=== PATIENT | female | born 1995 | race Caucasian/White ===

== ENCOUNTER 2024-02-01 21:00 | Emergency (ER) | payer OTHER ==
[~2024-02-01] VITALS: Ht 154.9 cm; Wt 97.5 kg
[~2024-02-01 21:00] MED LIST: AMOCLA500 PO; FLUO10; Flonase 0.05% N16 GM; IBUP400 PO; LEVOFLOXACIN250 M1 PO; Norco 10-325 T1 EACH PO; PSEU120ER PO; Pyridium100 MG PO; RXHYDACE PO; Zithromax250 MG PO; Zofran8 MG PO
[2024-02-01 21:06] VITALS: BP 145/81
[2024-02-01] MEDS ORDERED: Ketorolac Tromethamine 10 MG Tab PO ONE (22:05)
== END 2024-02-01 22:32 | disposition home or self-care (01) ==
LOC: ER 21:00
DX: S62.367A Nondisplaced fracture of neck of fifth metacarpal bone, left hand, initial encounter for closed fracture (principal); W01.198A Fall on same level from slipping, tripping and stumbling with subsequent striking against other object, initial encounter; Z88.0 Allergy status to penicillin; Z88.8 Allergy status to other drugs, medicaments and biological substances
CPT/HCPCS: 73110; 73130; A9270

== ENCOUNTER 2024-03-19 13:42 | Emergency (ER) | payer OTHER ==
[~2024-03-19] VITALS: Ht 154.9 cm; Wt 98.9 kg
[2024-03-19 14:59] VITALS: BP 131/94
[2024-03-19] MEDS ORDERED: Ibuprofen 600 MG Tab PO ONE (17:20)
[2024-03-19] MEDS ORDERED: ACET500 PO (18:37)
[2024-03-19] MEDS ORDERED: IBUP200 PO (18:37)
== END 2024-03-19 18:54 | disposition home or self-care (01) ==
LOC: ER 13:42
DX: S90.31XA Contusion of right foot, initial encounter (principal); Z88.0 Allergy status to penicillin; Z88.8 Allergy status to other drugs, medicaments and biological substances; Z79.899 Other long term (current) drug therapy; Z59.89 Other problems related to housing and economic circumstances; X58.XXXA Exposure to other specified factors, initial encounter; Y93.02 Activity, running
CPT/HCPCS: 76882; 99283-25; A9270

== ENCOUNTER → 2024-05-04 | Outpatient (CLI) | payer OTHER ==
[~2024-05-04] MED LIST changes: +ACET500 PO; +IBUP200 PO
== END ==
LOC: LAB SHORT 12:46 → LAB 12:46
DX: N39.0 Urinary tract infection, site not specified (principal)
CPT/HCPCS: 87077; 87086; 87186

== ENCOUNTER 2024-07-13 18:49 | Emergency (ER) | payer OTHER ==
[~2024-07-13] VITALS: Ht 152.4 cm; Wt 97.1 kg
[2024-07-13 19:13] VITALS: BP 132/83
[2024-07-13] MEDS ORDERED: DiphenhydrAMINE HCl 50 MG/ML 1ML Vial IV ONE (19:20)
[2024-07-13] MEDS ORDERED: Ketorolac Tromethamine 15mg Vial IV ONE (19:20)
[2024-07-13] MEDS ORDERED: Ondansetron HCl 2 MG / ML 2ML Vial IV ONE (19:20)
[2024-07-13] MEDS ORDERED: Dexamethasone Sod Phos 10 MG/ML 1ML VIAL IV ONE (19:20)
[2024-07-13 19:43] LABS: BASOPHILS ABSOLUTE AUTO 0.04 K/mm3 (0.00-0.23); BASOPHILS PERCENT AUTO 0 % (0-2); EOSINOPHILS ABSOLUTE AUTO 0.06 K/mm3 (0.00-0.68); EOSINOPHILS PERCENT AUTO 1 % (0-6); IMMATURE GRAN ABSOLUTE AUTO 0.04 K/mm3 (0.00-0.10); IMMATURE GRAN PERCENT AUTO 0 % (0-1); LYMPHOCYTES ABSOLUTE AUTO 2.04 K/mm3 (0.84-5.20); LYMPHOCYTES PERCENT AUTO 16 % (21-46); MONOCYTES PERCENT AUTO 4 % (4-13); Mean Corpuscular HGB 29.2 pg (26.0-34.0); Mean Corpuscular Volume 84 fL (80-100); Mean Platelet Volume 10.8 fL (9.1-12.4); NEUTROPHILS ABSOLUTE AUTO 9.74 K/mm3 (1.96-9.15); NEUTROPHILS PERCENT AUTO 79 % (41-73); Platelet Count 304 K/mm3 (150-400); RDW Standard Deviation 39.4 fL (35.1-46.3); Red Blood Cell Count 4.79 M/mm3 (3.80-5.20); White Blood Cell Count 12.42 K/mm3 (4.00-11.30)
[2024-07-13 20:01] LABS: Albumin/Globulin Ratio 1.1 (0.8-1.8); Bilirubin, Total 0.7 mg/dL (0.1-1.0); Bun/Creatinine Ratio 8.7 (12.0-20.0); Calcium, Blood 9.2 mg/dL (8.5-10.1); Creatinine, Blood 0.92 mg/dL (0.40-1.00); Globulin, Blood 3.8 g/dL (2.2-4.0); Potassium, Blood 3.8 mmol/L (3.5-5.5); Total Protein, Blood 7.8 g/dL (6.4-8.2)
[2024-07-13] MEDS ORDERED: ONDA4ODT MM (22:04)
[2024-07-13] MEDS ORDERED: RX Prepack 2 Tabs Ondansetron ODT 4MG UD ONE (22:05)
== END 2024-07-13 22:14 | disposition home or self-care (01) ==
LOC: ER 18:49
PROVIDERS: Student in an Organized Health Care Education/Training Program
DX: G43.909 Migraine, unspecified, not intractable, without status migrainosus (principal); Z79.899 Other long term (current) drug therapy; Z88.0 Allergy status to penicillin; Z88.8 Allergy status to other drugs, medicaments and biological substances
CPT/HCPCS: 80053; 85025; 96374; 96375; 99283-25; A9270; J1100; J1200; J1885; J2405